=== PATIENT | male | born 1965 | race Caucasian/White ===

== ENCOUNTER 2024-10-25 07:41 | Emergency (ER) | payer OTHER, SELFPAY ==
[2024-10-25 07:43] VITALS: BP 166/102
[2024-10-25 08:15] VITALS: BMI 32.2
[2024-10-25 08:24] VITALS: BP 142/95
[2024-10-25 08:40] LABS: % Basophils 0.6 % (0-2); % Immature Granulocytes 0.2 % (0-0.5); % Lymphocytes 30.1 % (20.5-51.1); % Monocytes 5.5 % (1.7-9.3); % Neutrophils 62.6 % (42.2-75.2); Absolute Eosinophils 0.1 10^3/uL (0-0.7); Absolute Lymphocytes 1.5 10^3/uL (1.2-3.4); Absolute Monocytes 0.3 10^3/uL (0.1-0.6); Absolute Neutrophils 3.2 10^3/uL (1.4-6.5); Hematocrit 40.2 % (39.0-52.0); Mean Corp Hgb Conc. 34.8 g/dL (33.0-37.0); Mean Corpuscular Hgb 31.5 pg (27.0-31.0); Mean Corpuscular Volume 90.5 fL (80.0-94.0); Mean Platelet Volume 10.4 fL (7.4-10.4); Nucleated Red Blood Cells % 0 % (-); Platelet Count 194 10^3/uL (130-400); Red Blood Cell Count 4.44 10^6/uL (4.70-6.10); Red Cell Dist. Width 12.2 % (11.5-14.5); White Blood Cell Count 5.1 10^3/uL (4.8-10.8)
[2024-10-25 08:55] LABS: Blood Urea Nitrogen 19 mg/dl (9-20); Calcium 9.4 mg/dl (8.4-10.2); Carbon Dioxide 22 mmol/L (22-30); Chloride 110 mmol/L (98-107); Estimated Creatinine Clearance 100 ml/min; Glucose 119 mg/dl (70-99); Potassium 4.9 mmol/L (3.5-5.1); Sodium 139 mmol/L (135-145); eGFR > 60.00
--- NOTE | 2024-10-25 08:57 | ED.GENMED ---
History of Present Illness
General
Chief Complaint: Dizziness
Source: patient
Exam Limitations: none
Time Seen by Provider: 10/25/24 07:53
History of Present Illness
History of Present Illness:
59-year-old male complaining of dizziness some chest pressure at times and shortness of breath. He feels he has shortness of breath when his blood pressure is elevated. He has had dizziness mildly for 4 to 5 days. Worse this morning while lying
in bed. Somewhat describing disequilibrium. No other neurologic symptoms. Patient has had significant blood pressure issues over the last month. He has lost significant weight on purpose. He was on 3 blood pressure medications these have been
taken off secondary to hypotension issues. He did however take 2 of his previous blood pressure medications early this morning. Very concerned about his blood pressure.
Past History
Past History
ED Past Medical History: HTN
Social History
Tobacco: Non-smoker
Alcohol: None
Drug: None
Personal:
Living: with family
Family History
Family History: Diabetes and CAD
Review of Systems
Review of Systems
All Other Systems: Not applicable
Neurological: Denies headache, weakness or numbness
Phy Exam
Physical Exam
Physical Exam:
GENERAL: Alert and oriented in no apparent distress. Initially standing in the room changing in no distress
EYE: Orbits normal.
NECK: Supple, no carotid bruit
ENT: TMs clear
Heart: Regular rate and rhythm no obvious murmurs.
LUNGS: Clear breath sounds,normal
ABDOMEN: Soft, without focal tenderness or distention
NEUROLOGICAL: Alert and oriented , cranial nerves II through XII intact. [id number] normal. No drift. [id number] normal. Light touch intact. Gait normal. Negative Romberg.
SKIN: Warm and dry, no rash or lesion, no discoloration, skin intact.
MUSCULOSKELETAL: No edema,no deformity.Good color
PSYCH: Normal and appropriate interaction.
Course
Orders/Labs/Results
Orders:
Orders
10/25/24 07:45
Electrocardiogram (*1) Urgent
Reason for Study: Vertigo / Dizzy
EKG- Treatment ONCE
10/25/24 08:17
IV Insert/Care/Rem.- Treatment PRN
MR Brain Without Contrast Urgent
Comment:
Reason For Exam: dizziness
Recent pill cam endoscopy?: No
10/25/24 08:18
Cardiac Monitoring- Treatment ONCE
10/25/24 08:21
Basic Metabolic Panel Urgent
Complete Blood Count/With Diff Urgent
D-Dimer Urgent
Troponin I Urgent
10/25/24 11:05
CT Chest PE Study Urgent
Comment:
Reason For Exam: Nausea dizziness positive dimer
10/25/24 14:02
Electrocardiogram (*1) Stat
Reason for Study: Other
Other Reason for Exam: chest pain
EKG- Treatment ONCE
10/25/24 14:28
Troponin I Urgent
Abnormal Lab Results
10/25/24
08:21
RBC 4.44 L 10^6/uL
(4.70-6.10)
MCH 31.5 H pg
(27.0-31.0)
Chloride 110 H mmol/L
(98-107)
Glucose 119 H mg/dl
(70-99)
10/25/24 08:21
10/25/24 08:21
Vital Signs
Initial and Last Documented VS:
Initial Vital Signs
Temp Pulse Resp BP Pulse Ox
98.3 F 62 16 166/102 98
10/25/24 07:43 10/25/24 07:43 10/25/24 07:43 10/25/24 07:43 10/25/24 07:43
Last Documented Vital Signs
Temp Pulse Resp BP Pulse Ox
98.3 F 56 17 133/79 97
10/25/24 07:43 10/25/24 15:00 10/25/24 15:00 10/25/24 11:00 10/25/24 15:00
MDM/Problems Addressed
Differential Diagnosis Includes:
Patient's major issue appears to be describing disequilibrium/possible vertigo. Not truly describing syncope or near syncope. Very concerned about his blood pressure issues. Highly doubt primary cardiac issue. Consider primary neurologic issue
although unlikely. MRI should rule this out or rule this in. Workup in progress
*Radiology
Radiology exam reviewed: radiology read reviewed (Negative MRI. Negative CT angio)
*Pulse Oximetry
SaO2: 99
Oxygen Mode of Delivery: Room air
Patient hypoxic: no
*Critical Care Note
Total Time (30-74mins, 75-104mins- exclusive of procedures): Not Applicable
Data Reviewed
Review of Other/Old Records Reveals: Labs, Records and Testing
Update Note
Update Note:
Patient has remained stable and nontoxic throughout his ER stay. Repeat troponin and EKG stable. No use etiology for his symptoms. Blood pressure has been stable. Patient does need to sit down with whoever is managing his blood pressure
medications to discuss approach. Discharged to follow-up.
ED Attending Note
-
Portions of this chart may have been created with voice recognition software.� Occasional wrong word or��sound alike� substitutions may have occurred due to the inherent limitations of voice recognition software.
Discharge Plan
Departure
Patient Disposition: Home (Routine Discharge)
Date of Disposition: 10/25/24
Time of Disposition: 15:22
Patient with high blood pressure during this ER visit?: Yes
Discharge Problem:
Dizziness, Dyspnea
Instructions: Dizziness, Nonvertigo, (DC), Shortness of breath in adults - ED discharge instructions, BLOOD PRESSURE
Prescriptions:
No Action
metoprolol tartrate 100 MG tablet
100 mg PO DAILY
omeprazole 40 MG capsule,delayed release(DR/EC)
40 mg PO DAILY
aspirin 81 MG tablet,delayed release (DR/EC)
162 mg PO HS
evolocumab [Repatha SureClick] 140 MG/ML pen injector
140 mg SQ .[id number]
Referrals:
Duong Lozano MD [Family Provider, [facility]] - Follow up in 2-3 days
Activity Restrictions/Additional Instructions:
As we discussed, call your physicians about blood pressure medication management
Interventions
Interventions:
*Risk Screen - Suicide Last Done: 10/25/24 07:43
*General Assessment Last Done: 10/25/24 08:15
*Neglect/Abuse Screening Last Done: 10/25/24 07:43
ED- Neurological Assessment Last Done: 10/25/24 08:33
ED- Cardiac Assessment Last Done: 10/25/24 08:33
Discharge Date and Time
Print Language: THAI
[2024-10-25 09:00] VITALS: BP 137/87
[2024-10-25 09:08] LABS: Troponin I < 0.012 ng/ml
[2024-10-25 10:00] VITALS: BP 141/80
[2024-10-25 11:00] VITALS: BP 133/79
[2024-10-25 15:12] LABS: Troponin I < 0.012 ng/ml
== END 2024-10-25 16:00 | disposition home or self-care (01) ==
LOC: EMR 07:41
PROVIDERS: EMERGENCY PHYSICIAN Emergency Medicine; FAMILY PHYSICIAN Family Medicine
DX: R42 Dizziness and giddiness (principal); R06.00 Dyspnea, unspecified; I10 Essential (primary) hypertension
CPT/HCPCS: 99285; 70551; 71275; 80048; 84484; 85025; 85379; 93005; Q9967